=== PATIENT | male | born 1995 | race Two or more races ===

== ENCOUNTER 2019-01-23 13:36 | Emergency (ER) | payer SELFPAY ==
[~2019-01-23] VITALS: Ht 172.7 cm; Wt 86.0 kg
[2019-01-23] MEDS ORDERED: ONDANSETRON HCL 4MG/2ML INJ IV STA (16:25)
[2019-01-23] MEDS ORDERED: SODIUM CHLORIDE 0.9% 1,000 ML IV ONE (16:25)
[2019-01-23 17:15] LABS: CLARITY URINE CLEAR (CLEAR); COLOR URINE YELLOW (YELLOW); KETONES URINE NEGATIVE (NEGATIVE); LEUKOCYTE ESTERASE URINE NEGATIVE (NEGATIVE); NITRITE URINE NEGATIVE (NEGATIVE); OCCULT BLOOD URINE NEGATIVE (NEGATIVE); PH URINE >=9.0 (4.5-8.0); PROTEIN URINE NEGATIVE (NEGATIVE); SPECIFIC GRAVITY URINE 1.003 (1.005-1.030); UROBILINOGEN URINE 0.2 E.U./dL (0.2-1.0)
[2019-01-23 17:54] LABS: BASOPHILS % 0.5 % (0.0-2.0); HEMATOCRIT. 46.4 % (42.0-52.0); MEAN CORPUSCULAR HEMOGLOBIN 31.6 pg (28.0-32.0); MEAN CORPUSCULAR VOLUME 91.6 fL (80.0-94.0); MEAN PLATELET VOLUME 9.4 fl (7.4-10.4); MONOCYTES % 3.6 % (2.0-8.0); NEUTROPHILS % 84.9 % (40.0-76.0); PLATELET 230 x1000/uL (130-400); RED BLOOD CELL COUNT 5.06 mill/uL (4.7-6.1); RED CELL DISTRIBUTION WIDTH 12.9 % (11.6-14.6)
[2019-01-23 18:00] LABS: CHLORIDE 104 mEq/L (98-107)
[2019-01-23 18:04] LABS: ETHANOL BLOOD < 10 mg/dL
[2019-01-23] MEDS ORDERED: POTASSIUM CHLORIDE 20MEQ TABLET SR PO ONE (18:30)
[2019-01-23 18:40] VITALS: BP 130/62
== END 2019-01-23 18:51 | disposition home or self-care (01) ==
LOC: ER 13:36
DX: R11.10 Vomiting, unspecified (principal); E87.6 Hypokalemia
CPT/HCPCS: 36415; 80053; 80320; 81003; 83690; 85025; 93005; 96361; 96374; 99284; J2405; J7030; Z7610; G0480